=== PATIENT | male | born 1960 | race Hispanic/Latino ===

== ENCOUNTER 2018-08-20 06:27 | Day surgery (SDC) | payer MEDICARE ==
[~2018-08-20] VITALS: Ht 165.1 cm; Wt 114.3 kg
[~2018-08-20 06:27] MED LIST: SODIUM CHLORIDE 0.9% 1000ML 1,000 ML IV ONE
[2018-08-20 07:13] VITALS: BP 115/63
[2018-08-20] MEDS ORDERED: NITROGLYCERIN 5 MG/ML 10 ML VIAL IV ONE (07:13)
[2018-08-20] MEDS ORDERED: LIDOCAINE HCL 2% 20ML ONE (07:13)
[2018-08-20] MEDS ORDERED: IOHEXOL 350 MG/ML 100ML INFUS..BTL IV ONE (07:13)
[2018-08-20] MEDS ORDERED: IODIXANOL 320 MG/ML 100 ML VIAL ONE (07:13)
[2018-08-20] MEDS ORDERED: ALLO100T PO (07:55)
[2018-08-20] MEDS ORDERED: DOCU100T PO (07:55)
[2018-08-20] MEDS ORDERED: VITAMIN D3 PO (07:55)
[2018-08-20] MEDS ORDERED: TAMS0.4C32 PO (07:55)
[2018-08-20] MEDS ORDERED: SERT100T12 PO (07:55)
[2018-08-20] MEDS ORDERED: LEVO500T86 PO (07:55)
[2018-08-20] MEDS ORDERED: ISOS60TA4 PO (07:55)
[2018-08-20] MEDS ORDERED: HYDR-4154 PO (07:55)
[2018-08-20] MEDS ORDERED: ERGO500014 PO (07:55)
[2018-08-20] MEDS ORDERED: CARV25TA PO (07:55)
[2018-08-20] MEDS ORDERED: PROPOFOL 10 MG/ML 20ML VIAL IV ONE (08:16)
[2018-08-20] MEDS ORDERED: MELA3TAB PO (08:16)
[2018-08-20] MEDS ORDERED: INSU100I3 SQ ×2 (08:17)
[2018-08-20] MEDS ORDERED: FLUT15.88 NS (08:17)
[2018-08-20] MEDS ORDERED: FISH1CAP27 PO (08:17)
[2018-08-20] MEDS ORDERED: VITA1TAB39 PO (08:17)
[2018-08-20] MEDS ORDERED: FERR-82 PO (08:17)
[2018-08-20] MEDS ORDERED: OMEP20TA25 PO (08:17)
[2018-08-20] MEDS ORDERED: CYCL30DR OP (08:17)
[2018-08-20] MEDS ORDERED: TIMO5SOL10 OP (08:17)
[2018-08-20] MEDS ORDERED: ATOR20TA65 PO (08:17)
[2018-08-20] MEDS ORDERED: CLOP75TA32 PO (08:17)
[2018-08-20] MEDS ORDERED: FURO40TA5 PO (08:17)
[2018-08-20] MEDS ORDERED: THREONINE PO (08:17)
[2018-08-20] MEDS ORDERED: GABA-531 PO (08:17)
[2018-08-20 08:37] VITALS: BP 85/52
[2018-08-20 08:42] VITALS: BP 100/55
[2018-08-20 08:47] VITALS: BP 111/62
[2018-08-20 09:06] VITALS: BP 128/74
--- NOTE | 2018-08-20 09:20 | NUR ---
PT TOLERATED PROCEDURE WELL, NO C/O PAIN, STATES HE IS HUNGRY, INSTRUCTED PT HE CAN START WITH A SOFT DIET THEN ADVANCE TO REGULAR DIET, NOTHING SPICY TODAY, DRINK WATER INSTRUCTED D/T FLUID RESTRICTION RELATED TO DIALYSIS. POST CARE INSTRUCTIONS GIVEN TO PT AND HIS PROVIDER, BOTH VERBALIZED UNDERSTANDING, PT STATED HIS PROVIDER SIGNS HIS DOCUMENTS FOR PROCEDURES , PT GAVE PERMISSION TO HAVE PROVIDER SIGN, PT PLACED IN A WHEELCHAIR AND DRIVEN HOME BY PROVIDER ALONG WITH HIS PERSONAL BELONGINGS.
== END 2018-08-20 09:20 | disposition home or self-care (01) ==
LOC: ENDO 06:27 → DAH 06:27 → ENDO 09:20
PROVIDERS: ATTEND Internal Medicine
DX: D12.3 Benign neoplasm of transverse colon (principal); K29.50 Unspecified chronic gastritis without bleeding; K57.30 Diverticulosis of large intestine without perforation or abscess without bleeding; K64.1 Second degree hemorrhoids; K44.9 Diaphragmatic hernia without obstruction or gangrene; D64.9 Anemia, unspecified; I12.9 Hypertensive chronic kidney disease with stage 1 through stage 4 chronic kidney disease, or unspecified chronic kidney disease; E11.22 Type 2 diabetes mellitus with diabetic chronic kidney disease; N18.9 Chronic kidney disease, unspecified; Z86.73 Personal history of transient ischemic attack (TIA), and cerebral infarction without residual deficits; Z68.41 Body mass index [BMI] 40.0-44.9, adult; E78.5 Hyperlipidemia, unspecified; I21.3 ST elevation (STEMI) myocardial infarction of unspecified site; Z98.49 Cataract extraction status, unspecified eye; Z98.890 Other specified postprocedural states; Z79.899 Other long term (current) drug therapy; Z79.84 Long term (current) use of oral hypoglycemic drugs; I25.10 Atherosclerotic heart disease of native coronary artery without angina pectoris
CPT/HCPCS: 36415; 43239; 45385; 82948 ×2; 84132; 88305; 88342; 93005; A4606; J2704; J7030; 45384; J1644; J3490; Q9967